=== PATIENT | female | born 1975 | race Caucasian/White ===

== ENCOUNTER 2016-12-10 09:34 | Emergency (ER) | payer MEDICAID, OTHER ==
[~2016-12-10] VITALS: Ht 170.2 cm; Wt 121.8 kg
[~2016-12-10 09:34] MED LIST: LEVO150T5 PO; METF10002 PO
[2016-12-10 09:47] VITALS: BP 139/87
[2016-12-10] MEDS ORDERED: KETOROLAC 30 MG/1 ML IM ONE (10:30)
[2016-12-10] MEDS ORDERED: OXYcodone/APAP 5/325MG TABLET ONE (10:30)
[2016-12-10] MEDS ORDERED: OXYcodone/APAP 5/325MG TABLET PO ONE (10:30)
[2016-12-10] MEDS ORDERED: KETOROLAC 30 MG/1 ML ONE (10:30)
== END 2016-12-10 11:41 | disposition home or self-care (01) ==
LOC: ED 11:35
DX: S30.0XXA Contusion of lower back and pelvis, initial encounter (principal); G89.29 Other chronic pain; M54.5 Low back pain; W10.9XXA Fall (on) (from) unspecified stairs and steps, initial encounter; Y93.89 Activity, other specified; Y92.89 Other specified places as the place of occurrence of the external cause; Y99.8 Other external cause status
CPT/HCPCS: 72220; 96372; 99284; J1885

== ENCOUNTER 2019-02-05 08:00 | Inpatient (IN) | payer OTHER ==
[~2019-02-05] VITALS: Ht 170.2 cm; Wt 132.4 kg
[2019-02-05] MEDS ORDERED: HYDR50TA13 PO (08:41)
[2019-02-05] MEDS ORDERED: GABA300C10 PO (08:41)
[2019-02-05] MEDS ORDERED: LORA-446 PO (08:41)
[2019-02-05] MEDS ORDERED: SODIUM CHLORIDE FLUSH 10ML SYR IVF ONE (09:00)
[2019-02-05] MEDS ORDERED: ONDANSETRON 2MG/ML, 2ML IVPush ONE (09:00)
[2019-02-05] MEDS ORDERED: THIAMINE 100MG TABLET PO ONE (09:00)
[2019-02-05] MEDS ORDERED: ONDANSETRON 2MG/ML, 2ML ONE (09:02)
[2019-02-05] MEDS ORDERED: THIAMINE 100MG TABLET ONE (09:02)
[2019-02-05] MEDS ORDERED: LORazepam 2 MG/ML, 1ML ONE ×2 (09:03→11:20)
[2019-02-05] MEDS: LORazepam 2 MG/ML, 1ML IVPush PRN ×2 (09:06→11:25)
[2019-02-05 09:12] LABS: BASOPHILS # (AUTO) 0.04 x10^3/uL (0-0.1); BASOPHILS % (AUTO) 0 % (0-1); EOSINOPHILS # (AUTO) 0.29 x10^3/uL (0-0.4); EOSINOPHILS % (AUTO) 3 % (1-7); LYMPHOCYTES # (AUTO) 0.95 x10^3/uL (1-3.4); LYMPHOCYTES % (AUTO) 9 % (22-44); MD NO; MEAN CORPUSCULAR HEMOGLOBIN 25.8 pg (27.0-34.8); MEAN CORPUSCULAR HGB CONC 31.8 g/dL (32.4-35.8); MEAN CORPUSCULAR VOLUME 81.2 fL (80-100); MEAN PLATELET VOLUME 7.2 fL (7.4-10.4); MONOCYTES # (AUTO) 0.47 x10^3/uL (0.2-0.8); MONOCYTES % (AUTO) 4 % (2-9); NEUTROPHILS # (AUTO) 9.31 x10^3/uL (1.8-6.8); NEUTROPHILS % (AUTO) 84 % (42-75); PLATELET COUNT 183 x10^3/uL (130-400); RED BLOOD COUNT 3.73 x10^6/uL (3.82-5.3)
[2019-02-05 09:24] LABS: ALANINE AMINOTRANSFERASE 44 U/L (12-78); ALBUMIN 3.6 g/dL (3.4-5.0); ANION GAP 13 mmol/L (5-15); CALCIUM 8.6 mg/dL (8.5-10.1); CHLORIDE 95 mmol/L (98-107); CREATININE 0.88 mg/dL (0.55-1.02)
[2019-02-05 09:29] LABS: ALKALINE PHOSPHATASE 81 U/L (45-117); BILIRUBIN,TOTAL 1.2 mg/dL (0.2-1.0); TOTAL PROTEIN 8.4 g/dL (6.4-8.2)
[2019-02-05] MEDS ORDERED: NS + 40MEQ KCL 500 ML IV SCH (10:00)
[2019-02-05] MEDS ORDERED: SODIUM CHLORIDE FLUSH 10ML SYR IVF PRN (10:00)
[2019-02-05] MEDS ORDERED: POTASSIUM CHLORIDE 40 MEQ in SODIUM CHLORIDE 0.9% 500 ML IV ONE ×2 (10:30→15:00)
[2019-02-05 11:39] VITALS: BP 158/9
[2019-02-05] MEDS ORDERED: LORazepam 2 MG/ML, 1ML IV PRN ×4 (13:30)
[2019-02-05] MEDS ORDERED: LORazepam 1MG TABLET PO PRN ×4 (13:30)
[2019-02-05] MEDS ORDERED: POLYETHYLENE GLYCOL 17 GM PACKET PO PRN (14:30)
[2019-02-05] MEDS ORDERED: PROMETHAZINE 25 MG/ML, 1ML IM PRN (14:30)
[2019-02-05] MEDS ORDERED: ONDANSETRON ODT 4 MG PO PRN (14:30)
[2019-02-05] MEDS ORDERED: hydrALAzine 20 MG/ML, 1ML IVPush PRN (14:30)
[2019-02-05] MEDS ORDERED: morphine SULFATE 10 MG/ML, 1ML IVPush PRN (14:30)
[2019-02-05] MEDS ORDERED: ONDANSETRON 2MG/ML, 2ML IVPush PRN (14:30)
[2019-02-05] MEDS ORDERED: DOCUSATE 100 MG CAPSULE PO PRN (14:30)
[2019-02-05] MEDS ORDERED: BISACODYL 10 MG SUPP PR PRN (14:30)
[2019-02-05] MEDS ORDERED: SERT50TA28 PO (14:49)
[2019-02-05 15:02] LABS: FREE T4 (FREE THYROXINE) 0.58 ng/dL (0.76-1.46)
[2019-02-05 15:11] LABS: HEMOGLOBIN A1C 5.2 % (4.2-6.3)
[2019-02-05] MEDS: MULTIVITAMIN 1 TABLET PO SCH (16:20)
[2019-02-05] MEDS: THIAMINE 100MG TABLET PO SCH (16:20)
[2019-02-05] MEDS: GABAPENTIN 100 MG CAPSULE PO SCH ×2 (16:20→20:30)
[2019-02-05] MEDS: FOLIC ACID 1 MG TABLET PO SCH (16:20)
[2019-02-05] MEDS: HEPARIN 5,000 UNITS/ML, 1ML SQ SCH ×2 (16:21→22:07)
[2019-02-05] MEDS: LORazepam 2 MG/ML, 1ML IV PRN (16:21)
[2019-02-05] MEDS ORDERED: PHENOL THROAT SPRAY BOTTLE MM PRN (20:00)
[2019-02-05] MEDS: metFORMIN 500 MG TABLET PO SCH (20:30)
[2019-02-05 21:01] VITALS: BP 137/80
[2019-02-05] MEDS: LORazepam 1MG TABLET PO SCH (21:55)
[2019-02-05] MEDS: SODIUM CHLORIDE 0.9% 1,000 ML IV SCH (21:55)
[2019-02-06 01:48] VITALS: BP 137/83
[2019-02-06] MEDS: OXYcodone IR 5MG TABLET PO PRN ×2 (06:02→21:31)
[2019-02-06] MEDS: LORazepam 0.5MG TABLET PO PRN ×2 (06:02→21:31)
[2019-02-06] MEDS: HEPARIN 5,000 UNITS/ML, 1ML SQ SCH ×3 (06:02→21:32)
[2019-02-06] MEDS: SODIUM CHLORIDE 0.9% 1,000 ML IV SCH (06:03)
[2019-02-06 06:25] LABS: BASOPHILS # (AUTO) 0.05 x10^3/uL (0-0.1); BASOPHILS % (AUTO) 1 % (0-1); EOSINOPHILS # (AUTO) 0.27 x10^3/uL (0-0.4); EOSINOPHILS % (AUTO) 3 % (1-7); LYMPHOCYTES # (AUTO) 1.54 x10^3/uL (1-3.4); LYMPHOCYTES % (AUTO) 19 % (22-44); MD NO; MEAN CORPUSCULAR HEMOGLOBIN 26.3 pg (27.0-34.8); MEAN CORPUSCULAR HGB CONC 31.9 g/dL (32.4-35.8); MEAN CORPUSCULAR VOLUME 82.6 fL (80-100); MEAN PLATELET VOLUME 7.3 fL (7.4-10.4); MONOCYTES # (AUTO) 0.41 x10^3/uL (0.2-0.8); MONOCYTES % (AUTO) 5 % (2-9); NEUTROPHILS # (AUTO) 5.86 x10^3/uL (1.8-6.8); NEUTROPHILS % (AUTO) 72 % (42-75); PLATELET COUNT 127 x10^3/uL (130-400); RED BLOOD COUNT 3.36 x10^6/uL (3.82-5.3); RED CELL DISTRIBUTION WIDTH 21.5 % (9.6-15.2)
[2019-02-06 06:25] LABS: AMPHETAMINE SCREEN, URINE Negative (Negative); BARBITURATE SCREEN, URINE Negative (Negative); BENZODIAZEPINE SCREEN, URINE Positive (Negative); CANNABINOID SCREEN, URINE Negative (Negative); COCAINE SCREEN, URINE Negative (Negative); METHADONE SCREEN, URINE Negative (Negative); OPIATE SCREEN, URINE Negative (Negative)
[2019-02-06 06:32] LABS: ALANINE AMINOTRANSFERASE 38 U/L (12-78); ALBUMIN 3.3 g/dL (3.4-5.0); ANION GAP 8 mmol/L (5-15); CHLORIDE 102 mmol/L (98-107); CHOLESTEROL, TOTAL 303 mg/dL (140-239); CREATININE 0.79 mg/dL (0.55-1.02)
[2019-02-06 06:34] LABS: ALKALINE PHOSPHATASE 73 U/L (45-117); CHOL/HDL RATIO 10.1; HDL CHOL % 10 % (28-40); HDL CHOLESTEROL (DIRECT) 30 mg/dL (40-60); TOTAL PROTEIN 7.5 g/dL (6.4-8.2); TRIGLYCERIDES 481 mg/dL (50-200)
[2019-02-06 06:49] VITALS: BP 129/80
[2019-02-06] MEDS: MULTIVITAMIN 1 TABLET PO SCH (08:16)
[2019-02-06] MEDS: LEVOTHYROXINE 175 MCG TABLET PO SCH (08:16)
[2019-02-06] MEDS: FOLIC ACID 1 MG TABLET PO SCH (08:16)
[2019-02-06] MEDS: GABAPENTIN 100 MG CAPSULE PO SCH ×3 (08:16→19:17)
[2019-02-06] MEDS: LORazepam 1MG TABLET PO SCH ×2 (08:17→19:17)
[2019-02-06] MEDS: metFORMIN 500 MG TABLET PO SCH ×2 (08:17→19:17)
[2019-02-06] MEDS: hydrOXyzine 50MG TABLET PO SCH (08:18)
[2019-02-06] MEDS: THIAMINE 100MG TABLET PO SCH (08:18)
[2019-02-06] MEDS ORDERED: MAGNESIUM SULFATE PMX 2GM/50ML 50 ML IV ONE (09:30)
[2019-02-06 12:43] VITALS: BP 130/83
[2019-02-06 14:37] LABS: MICROSCOPIC INDICATED
[2019-02-06 14:39] LABS: CULTURE INDICATED? YES
[2019-02-06] MEDS: LORazepam 2 MG/ML, 1ML IV PRN (15:55)
[2019-02-06 18:58] VITALS: BP 155/83
[2019-02-07 01:41] VITALS: BP 142/90
[2019-02-07] MEDS: HEPARIN 5,000 UNITS/ML, 1ML SQ SCH ×3 (05:11→22:50)
[2019-02-07 07:52] VITALS: BP 121/74
[2019-02-07] MEDS: LEVOTHYROXINE 175 MCG TABLET PO SCH (08:49)
[2019-02-07] MEDS: metFORMIN 500 MG TABLET PO SCH ×2 (08:49→20:51)
[2019-02-07] MEDS: THIAMINE 100MG TABLET PO SCH (08:50)
[2019-02-07] MEDS: FENOFIBRATE 145 MG TABLET PO SCH (08:50)
[2019-02-07] MEDS: MULTIVITAMIN 1 TABLET PO SCH (08:50)
[2019-02-07] MEDS: GABAPENTIN 100 MG CAPSULE PO SCH (08:51)
[2019-02-07] MEDS: hydrOXyzine 50MG TABLET PO SCH (08:51)
[2019-02-07] MEDS: LORazepam 1MG TABLET PO SCH (08:51)
[2019-02-07] MEDS: FOLIC ACID 1 MG TABLET PO SCH (08:51)
[2019-02-07] MEDS: ERGOCALCIFEROL 50,000 UNIT CAPSULE PO SCH (12:09)
[2019-02-07] MEDS ORDERED: hydrOXyzine 50MG TABLET PO PRN (14:00)
[2019-02-07 14:36] VITALS: BP 128/82
[2019-02-07] MEDS: SERTRALINE 100MG TABLET PO SCH (15:01)
[2019-02-07] MEDS: GABAPENTIN 300 MG CAPSULE PO SCH ×2 (16:41→20:51)
[2019-02-07 21:32] VITALS: BP 137/88
[2019-02-07] MEDS: LORazepam 0.5MG TABLET PO PRN (21:39)
[2019-02-07] MEDS: OXYcodone IR 5MG TABLET PO PRN (22:02)
[2019-02-08 01:03] VITALS: BP 136/87
[2019-02-08] MEDS: LORazepam 0.5MG TABLET PO PRN ×3 (04:21→13:23)
[2019-02-08] MEDS: OXYcodone IR 5MG TABLET PO PRN ×3 (04:22→13:24)
[2019-02-08] MEDS: HEPARIN 5,000 UNITS/ML, 1ML SQ SCH ×2 (06:00→15:19)
[2019-02-08 07:47] VITALS: BP 146/85
[2019-02-08] MEDS: FENOFIBRATE 145 MG TABLET PO SCH (07:50)
[2019-02-08] MEDS: FOLIC ACID 1 MG TABLET PO SCH (07:51)
[2019-02-08] MEDS: SERTRALINE 100MG TABLET PO SCH (07:51)
[2019-02-08] MEDS: GABAPENTIN 300 MG CAPSULE PO SCH ×2 (07:51→15:19)
[2019-02-08] MEDS: ERGOCALCIFEROL 50,000 UNIT CAPSULE PO SCH (07:51)
[2019-02-08] MEDS: THIAMINE 100MG TABLET PO SCH (07:51)
[2019-02-08] MEDS: MULTIVITAMIN 1 TABLET PO SCH (07:51)
[2019-02-08] MEDS: metFORMIN 500 MG TABLET PO SCH (07:51)
[2019-02-08] MEDS: LEVOTHYROXINE 175 MCG TABLET PO SCH (07:51)
[2019-02-08 13:21] VITALS: BP 141/93
[2019-02-08] MEDS ORDERED: FOLI-17 PO (16:48)
[2019-02-08] MEDS ORDERED: THIA100T67 PO (16:48)
[2019-02-08] MEDS ORDERED: MULT1TAB60 PO (16:48)
[2019-02-08] MEDS ORDERED: HYDR50TA13 PO (16:48)
[2019-02-08] MEDS ORDERED: GABA300C10 PO (16:48)
[2019-02-08] MEDS ORDERED: SERT100T32 PO (16:48)
[2019-02-08] MEDS ORDERED: FENO145T30 PO (16:48)
[2019-02-08] MEDS ORDERED: ERGO500017 PO (16:48)
== END 2019-02-08 18:15 | disposition home or self-care (01) | DRG 101 ==
LOC: ED 09:55 → EDIP 09:56 → ED 10:28 → 4EST 11:35
PROVIDERS: ADMIT Internal Medicine; ATTEND Internal Medicine
DX: G40.89 Other seizures (principal); F10.188 Alcohol abuse with other alcohol-induced disorder; Z68.42 Body mass index [BMI] 45.0-49.9, adult; D64.9 Anemia, unspecified; E03.9 Hypothyroidism, unspecified; E66.9 Obesity, unspecified; E87.6 Hypokalemia; F41.0 Panic disorder [episodic paroxysmal anxiety]; F32.9 Major depressive disorder, single episode, unspecified; F29 Unspecified psychosis not due to a substance or known physiological condition; K70.10 Alcoholic hepatitis without ascites; Z79.899 Other long term (current) drug therapy; Z88.0 Allergy status to penicillin; Z81.8 Family history of other mental and behavioral disorders; Z98.84 Bariatric surgery status
CPT/HCPCS: 36415; 71045; 80053; 80061; 80307; 81001; 82306; 82607; 82728; 83036; 83540; 83550; 83690; 83735; 84439; 84443; 84466; 84703; 85025; 87086; 93005; 96374; 99285; G0378; J1644; J2405; J3480; J2060; J3475; J7030; J7040

== ENCOUNTER 2019-02-27 14:09 | Emergency (ER) | payer MEDICAID, OTHER ==
[~2019-02-27] VITALS: Ht 170.2 cm; Wt 124.1 kg
[~2019-02-27 14:09] MED LIST changes: +ERGO500017 PO; +FENO145T30 PO; +FOLI-17 PO; +GABA300C10 PO; +HYDR50TA13 PO; +LORA-446 PO; +MULT1TAB60 PO; +SERT100T32 PO; +SERT50TA28 PO; +THIA100T67 PO
[2019-02-27 14:12] VITALS: BP 134/87
--- NOTE | 2019-02-27 14:23 | NUR ---
PT AMBULATORY TO ROOM 9. HERE FOR RX REFILL. STATES NO ONE IS ACCEPTING NEW PT'S UNTIL MARCH AND SHE HAS NOT HAD HER MEDS X 9 DAYS. PT RESTING [place].
== END 2019-02-27 14:38 | disposition home or self-care (01) ==
LOC: ED 14:30
DX: F41.1 Generalized anxiety disorder (principal); F32.9 Major depressive disorder, single episode, unspecified; Z72.9 Problem related to lifestyle, unspecified; Z76.0 Encounter for issue of repeat prescription; Z86.39 Personal history of other endocrine, nutritional and metabolic disease
CPT/HCPCS: 99283

== ENCOUNTER 2019-03-13 16:32 | Emergency (ER) | payer MEDICAID ==
[~2019-03-13] VITALS: Ht 170.2 cm; Wt 122.3 kg
[2019-03-13 16:33] VITALS: BP 168/80
== END 2019-03-13 17:12 | disposition home or self-care (01) ==
LOC: ED 17:00
DX: F41.9 Anxiety disorder, unspecified (principal); Z76.0 Encounter for issue of repeat prescription
CPT/HCPCS: 99283

== ENCOUNTER 2019-08-11 12:54 | Emergency (ER) | payer MEDICAID ==
[~2019-08-11] VITALS: Ht 170.2 cm; Wt 128.6 kg
[~2019-08-11 12:54] MED LIST changes: +FENO145T19 PO; -FENO145T30 PO; -HYDR50TA13 PO; +HYDR50TA99 PO; +MULT-449 PO; -MULT1TAB60 PO
[2019-08-11 12:58] VITALS: BP 162/93
--- NOTE | 2019-08-11 13:03 | NUR ---
PT AMBULATES WELL TO ROOM FROM TRIAGE.
[2019-08-11] MEDS ORDERED: LORazepam 1MG TABLET ONE (13:26)
[2019-08-11] MEDS ORDERED: LORazepam 1MG TABLET PO ONE (13:30)
[2019-08-11 13:37] LABS: BASOPHILS # (AUTO) 0.03 x10^3/uL (0-0.1); BASOPHILS % (AUTO) 0 % (0-1); EOSINOPHILS # (AUTO) 0.38 x10^3/uL (0-0.4); EOSINOPHILS % (AUTO) 3 % (1-7); LYMPHOCYTES # (AUTO) 1.35 x10^3/uL (1-3.4); LYMPHOCYTES % (AUTO) 12 % (22-44); MD NO; MEAN CORPUSCULAR HEMOGLOBIN 22.3 pg (27.0-34.8); MEAN CORPUSCULAR HGB CONC 31.6 g/dL (32.4-35.8); MEAN CORPUSCULAR VOLUME 70.5 fL (80-100); MEAN PLATELET VOLUME 7.4 fL (7.4-10.4); MONOCYTES # (AUTO) 0.45 x10^3/uL (0.2-0.8); MONOCYTES % (AUTO) 4 % (2-9); NEUTROPHILS # (AUTO) 8.77 x10^3/uL (1.8-6.8); NEUTROPHILS % (AUTO) 80 % (42-75); PLATELET COUNT 277 x10^3/uL (130-400); RED BLOOD COUNT 4.42 x10^6/uL (3.82-5.3); RED CELL DISTRIBUTION WIDTH 19.5 % (9.6-15.2)
[2019-08-11 13:50] LABS: ALANINE AMINOTRANSFERASE 35 U/L (12-78); ALBUMIN 3.6 g/dL (3.4-5.0); ANION GAP 7 mmol/L (5-15); CHLORIDE 105 mmol/L (98-107); CREATININE 0.78 mg/dL (0.55-1.02)
[2019-08-11 13:55] LABS: ALKALINE PHOSPHATASE 61 U/L (45-117); BILIRUBIN,TOTAL 0.5 mg/dL (0.2-1.0); TOTAL PROTEIN 7.9 g/dL (6.4-8.2)
== END 2019-08-11 14:58 | disposition home or self-care (01) ==
LOC: ED 14:30
DX: G40.309 Generalized idiopathic epilepsy and epileptic syndromes, not intractable, without status epilepticus (principal); R94.31 Abnormal electrocardiogram [ECG] [EKG]
CPT/HCPCS: 36415; 70450; 80053; 84703; 85025; 93005; 99285